=== PATIENT | female | born 2000 | race Two or more races ===

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

== ENCOUNTER 2021-10-11 03:28 | Emergency (ER) | payer OTHER ==
[2021-10-11 03:36] VITALS: BP 134/82; PULSE 95; TEMP 98; BMI 24.8
[2021-10-11] MEDS ORDERED: ACETAMINOPHEN 325 MG TABLET (FP) PO ONE (03:45)
[2021-10-11] MEDS ORDERED: ACETAMINOPHEN 325 MG TABLET (FP) ONE (03:52)
[2021-10-11] MEDS ORDERED: ACETAMINOPHEN 1000 MG/100 ML BAG IVPB ONE (03:54)
[2021-10-11] MEDS ORDERED: ACETAMINOPHEN INJECTION 100 ML IVPB ONE (03:57)
[2021-10-11 05:16] LABS: EPI CELLS 26 /uL (0-25.1); HYALINE CASTS 2 /uL (0-3.1); URINE APPEARANCE CLEAR; URINE BACTERIA 2024 /uL (0-1359); URINE BILIRUBIN NEGATIVE (NEGATIVE); URINE COLOR YELLOW; URINE GLUCOSE (UA) NEGATIVE (NEGATIVE); URINE KETONE NEGATIVE (NEGATIVE); URINE LEUK ESTERASE 2+ (NEGATIVE); URINE NITRITE NEGATIVE (NEGATIVE); URINE PROTEIN NEGATIVE (NEGATIVE); URINE RBC 25 /uL (0-23.9); URINE WBC 494 /uL (0-25.8)
[2021-10-11] MEDS ORDERED: CEFTRIAXONE 1 GM in DEXTROSE 5%-WATER - 100 ML IVPB ONE (05:22)
[2021-10-11 05:25] LABS: CALCIUM 8.7 mg/dL (8.5-10.1)
[2021-10-11 05:26] LABS: ALBUMIN 3.8 g/dl (3.4-5.0); BLOOD UREA NITROGEN 10.3 mg/dL (7-18)
[2021-10-11 05:27] LABS: INR 1.02 (0.83-1.09); PROTHROMBIN TIME (PATIENT) 11.7 SEC (9.7-13.0)
[2021-10-11 05:28] LABS: BASO % 0.2 % (0-2.0); EOS % 2.5 % (0-4.5); HEMATOCRIT 43.5 % (32.4-45.2); HEMOGLOBIN 14.1 GM/dL (10.7-15.3); MCH 27.5 pg (25.7-33.7); MCHC 32.4 g/dl (32.0-36.0); MEAN CELL VOLUME 84.8 fl (80-96); MEAN PLT VOLUME 8.4 fl (7.5-11.1); NEUT % 70.3 % (42.8-82.8); PLATELET COUNT 279 10^3/uL (134-434); RBC 5.13 M/mm3 (3.60-5.2); RDW 14.8 % (11.6-15.6); WHITE BLOOD COUNT 11.7 K/mm3 (4.0-10.0)
[2021-10-11 05:29] LABS: CREATININE 0.7 mg/dL (0.55-1.3)
[2021-10-11 05:31] LABS: BILIRUBIN,TOTAL 0.3 mg/dL (0.2-1); TOT PROT 7.7 g/dl (6.4-8.2)
[2021-10-11] MEDS ORDERED: CEFTRIAXONE 1 GM/50 ML BAG ONE (06:07)
== END 2021-10-11 06:52 | disposition home or self-care (01) ==
LOC: JER 03:28
PROC: 3E033GC Introduction of Other Therapeutic Substance into Peripheral Vein, Percutaneous Approach (ICD-10-PCS; principal; 2021-10-11)
DX: N10 Acute pyelonephritis (principal)
CPT/HCPCS: 36415; 74176-TC; 80053; 81003; 84703; 85025; 85610; 86850; 86900; 86901; 87086; 87186; 87491; 87591; 96365; 96375; 99285-25

== ENCOUNTER 2022-04-20 16:00 | Emergency (ER) | payer OTHER ==
[2022-04-20 16:18] VITALS: BP 129/87; PULSE 112; RESP 18; TEMP 97.8; BMI 25.2
[2022-04-20] MEDS ORDERED: KETOROLAC TROMETHAMINE 30 MG/1 ML VIAL IM ONE (18:34)
[2022-04-20] MEDS ORDERED: KETOROLAC TROMETHAMINE 30 MG/1 ML VIAL ONE (18:47)
[2022-04-20 19:02] LABS: URINE APPEARANCE CLEAR; URINE BILIRUBIN NEGATIVE (NEGATIVE); URINE COLOR YELLOW; URINE GLUCOSE (UA) NEGATIVE (NEGATIVE); URINE KETONE NEGATIVE (NEGATIVE); URINE LEUK ESTERASE NEGATIVE (NEGATIVE); URINE NITRITE NEGATIVE (NEGATIVE); URINE PROTEIN NEGATIVE (NEGATIVE)
[2022-04-20 19:04] LABS: HCG,QUALITATIVE URINE Negative
== END 2022-04-20 20:13 | disposition home or self-care (01) ==
LOC: JERFT 16:00
PROC: 3E0233Z Introduction of Anti-inflammatory into Muscle, Percutaneous Approach (ICD-10-PCS; principal; 2022-04-20)
DX: M54.50 Low back pain, unspecified (principal)
CPT/HCPCS: 81003; 84703; 87086; 99284-25